=== PATIENT | female | born 1990 ===

== ENCOUNTER 2020-10-09 08:27 | Outpatient (CLI) | payer SELFPAY ==
[2020-10-09 09:19] VITALS: BP 107/58
[2020-10-09] MEDS ORDERED: LACTATED RINGERS 500 ML IV ONE (09:30)
[2020-10-09 10:18] LABS: Bacteria,Urine 4+ /HPF (Negative); Bilirubin,Urine NEG (Negative); Blood,Urine NEG (Negative); Color,Urine Yellow (Yellow); Protein,Urine <15 mg/dL mg/dL (Negative); Urobilinogen,Urine < 2.0 mg/dL (<2.0)
[2020-10-09] MEDS ORDERED: LACTATED RINGERS 1,000 ML IV ONE (10:24)
== END 2020-10-09 12:35 | disposition home or self-care (01) ==
LOC: EDBD → TRG 08:27 → APU 08:28 → TRG 12:35
PROVIDERS: ATTEND Obstetrics & Gynecology
DX: O26.893 Other specified pregnancy related conditions, third trimester (principal); R52 Pain, unspecified; O13.3 Gestational [pregnancy-induced] hypertension without significant proteinuria, third trimester; O62.9 Abnormality of forces of labor, unspecified; Z3A.31 31 weeks gestation of pregnancy
CPT/HCPCS: 59025; 81001; 96365; J0690; J7120; 96360

== ENCOUNTER 2020-12-01 07:15 | Inpatient (IN) | payer OTHER ==
[2020-12-01] MEDS ORDERED: ACETAMINOPHEN 325 MG TAB PO PRN (08:25)
[2020-12-01] MEDS ORDERED: ONDANSETRON 4 MG/2 ML INJ IV PRN ×2 (08:30→14:47)
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
[2020-12-01] MEDS ORDERED: LIDOCAINE (2%) 20 MG/1 ML VIAL 20 ML MDV INFILTRATI SCH (09:00)
[2020-12-01] MEDS ORDERED: OXYTOCIN DRIP 30 UNITS/500 ML BAG IV SCH ×3 (09:00→15:00)
[2020-12-01] MEDS ORDERED: TERBUTALINE 1 MG/1 ML INJ SUB-Q PRN (09:00)
[2020-12-01] MEDS ORDERED: NALOXONE 0.4 MG/1 ML INJ IV PRN (09:30)
[2020-12-01] MEDS ORDERED: METHYLERGONOVINE MALEATE 0.2 MG/ML VIAL IM PRN (09:30)
[2020-12-01] MEDS ORDERED: CARBOPROST TROMETHAMINE 250 MCG/1 ML INJ IM PRN (09:30)
[2020-12-01] MEDS ORDERED: LOPERAMIDE 2 MG CAP PO PRN (09:30)
[2020-12-01] MEDS ORDERED: OXYTOCIN 10 UNIT/1 ML INJ IM PRN (09:30)
[2020-12-01] MEDS ORDERED: fentaNYL 100 MCG/2 ML INJ IV PRN (09:30)
[2020-12-01] MEDS ORDERED: miSOPROStol 200 MCG TAB PR PRN ×2 (09:30→14:47)
[2020-12-01] MEDS ORDERED: ePHEDrine SULFATE 50 MG/1 ML INJ IV PRN (09:30)
[2020-12-01] MEDS ORDERED: PROMETHAZINE 25 MG TAB PO PRN ×2 (09:30→14:47)
[2020-12-01] MEDS ORDERED: BUTORPHANOL 2 MG/1 ML INJ IV PRN (09:30)
--- NOTE | 2020-12-01 09:36 | Ultrasound Report ---
LIMITED OBSTETRICAL ULTRASOUND WITH BIOPHYSICAL PROFILE HISTORY: Evaluate growth, well being and PER. FINDINGS: A single viable intrauterine in the cephalic position has heart tones of 13 4 bpm. Amniotic fluid index is 3.8 cm. Estimated age by ultrasound is 35 weeks 3 days. Clinical age is 38 weeks 4 days. Estimated feta l weight is 2605 g (87th percentile). Cephalic index is elevated at 90.9. No fibroid is identified. Biophysical profile is 6/8. The patient received 0 points for amniotic fluid volume. IMPRESSION: 1. Oligohydramnios. Biophysical profile is 6/8 on this basis. 2. weight 87th percentile. 3. Elevated cephalic index. Signer Name: Sal Harden MD Signed: 12/01/2020 9:32 AM Workstation Name: [id number]
[2020-12-01] MEDS ORDERED: MINERAL OIL 30 ML ORAL LIQD PO PRN (10:00)
[2020-12-01] MEDS ORDERED: ACETAMINOPHEN 500 MG TAB PO PRN ×2 (10:00→14:47)
[2020-12-01 10:29] LABS: Hematocrit 33.1 % (30.3-42.9); Hemoglobin 10.9 gm/dl (10.1-14.3); Mean Corpuscular HGB Conc 33 % (30-34); Mean Corpuscular Volume 78 fl (79-97); Platelet Count 329 K/mm3 (140-440); Red Blood Count 4.22 M/mm3 (3.65-5.03); Red Cell Distribution Width 15.2 % (13.2-15.2)
[2020-12-01 10:38] LABS: Bacteria,Urine 1+ /HPF (Negative); Bilirubin,Urine NEG (Negative); Blood,Urine LG (Negative); Color,Urine Yellow (Yellow); Hyaline Casts,Urine 1 /LPF; Mucus,Urine FEW /HPF; Protein,Urine <15 mg/dL mg/dL (Negative); Urobilinogen,Urine < 2.0 mg/dL (<2.0)
[2020-12-01 10:40] LABS: Amphetamine Screen,Urine Negative; Benzodiazepines Screen,Urine Negative; Cannabinoid Screen,Urine Negative; Cocaine Screen,Urine Negative; Methadone Screen,Urine Negative; Opiate Screen,Urine Negative
[2020-12-01 10:42] LABS: RBC,Urine > 182.0 /HPF (0.0-6.0)
[2020-12-01] MEDS: LACTATED RINGERS 1,000 ML IV SCH ×2 (10:45→13:28)
[2020-12-01] MEDS ORDERED: AMPICILLIN/NS 2 GM/100 ML 2 GM/100 ML BAG IV SCH (11:00)
[2020-12-01 11:27] LABS: Hepatitis C Virus Antibody Non-Reactive (NonReactive)
--- NOTE | 2020-12-01 12:41 | Anesthesia Consultation ---
Anesthesia Consult and Med Hx Date of service: 12/01/20 - Airway Anesthetic Teeth Evaluation: Poor ROM Head & Neck: Adequate Mental/Hyoid Distance: Adequate Mallampati Class: Class II Intubation Access Assessment: Probably Good - Pulmonary Exam CTA: Yes - Cardiac Exam Cardiac Exam: RRR - Pre-Operative Health Status ASA Pre-Surgery Classification: ASA2 Proposed Anesthetic Plan: Epidural - Pulmonary Hx Smoking: Yes (quit 2019) Hx Asthma: No Hx Respiratory Symptoms: No SOB: No COPD: No Home Oxygen Therapy: No Hx Pneumonia: No Hx Sleep Apnea: No - Cardiovascular System Hx Hypertension: No Hx Coronary Artery Disease: No Hx Heart Attack/AMI: No Hx Angina: No Hx Percutaneous Transluminal Coronary Angioplasty (PTCA): No Hx Cardia Arrhythmia: No Hx Pacemaker: No Hx Internal Defibrillator: No Hx Valvular Heart Disease: No Hx Heart Murmur: No Hx Peripheral Vascular Disease: No - Central Nervous System Hx Neuromuscular Disorder: No Hx Seizures: No CVA: No Hx Back Pain: No Hx Psychiatric Problems: No - Gastrointestinal Hx Ulcer: No Hx Gastroesophageal Reflux Disease: Yes - Endocrine Hx Renal Disease: No Hx End Stage Renal Disease: No Hx Cirrhosis: No Hx Liver Disease: No Hx Insulin Dependent Diabetes: No Hx Non-Insulin Dependent Diabetes: No Hx Thyroid Disease: No Hx Hypothyroidism: No Hx Hyperthyroidism: No - Hematic Hx Anemia: No Hx Sickle Cell Disease: No - Other Systems Hx Alcohol Use: No Hx Substance Use: No Hx Cancer: No Hx Obesity: No
--- NOTE | 2020-12-01 12:59 | Progress Note ---
Assessment and Plan A: 30 y.o. @ 38.3 wks, SROM @ 0500 clear fluid, limited PNC in the states. Cervical exam 3.5/70/-3. P: IV fluid bolus for epidural placement. Anticipate . LINA team at delivery. Subjective - Subjective Date of service: 12/01/20 (Pt feeling contractions. ) Principal diagnosis: IUP @ 38.3 wks per LMP, limited PNC in the states Patient reports: movement normal, contractions Objective - Vital Signs Vital Signs: Vital Signs - 12hr 12/01/20 12/01/20 12/01/20 08:03 08:05 08:08 Temperature 98.3 F Pulse Rate 69 62 66 Respiratory 20 Rate Blood Pressure 148/83 O2 Sat by Pulse 98 99 Oximetry 12/01/20 12/01/20 12/01/20 08:13 08:18 08:20 Temperature Pulse Rate 68 60 68 Respiratory Rate Blood Pressure 125/77 O2 Sat by Pulse 99 99 Oximetry 12/01/20 12/01/20 12/01/20 08:23 08:28 08:33 Temperature Pulse Rate 59 L 64 61 Respiratory Rate Blood Pressure O2 Sat by Pulse 99 98 98 Oximetry 12/01/20 12/01/20 12/01/20 08:38 08:43 08:48 Temperature Pulse Rate 73 65 70 Respiratory Rate Blood Pressure O2 Sat by Pulse 98 98 99 Oximetry 12/01/20 12/01/20 12/01/20 08:53 08:58 09:03 Temperature Pulse Rate 69 68 65 Respiratory Rate Blood Pressure O2 Sat by Pulse 99 96 97 Oximetry 12/01/20 12/01/20 12/01/20 09:08 09:13 09:18 Temperature Pulse Rate 69 71 71 Respiratory Rate Blood Pressure O2 Sat by Pulse 99 99 99 Oximetry 12/01/20 12/01/20 12/01/20 09:23 09:28 09:33 Temperature Pulse Rate 63 62 66 Respiratory Rate Blood Pressure O2 Sat by Pulse 99 99 99 Oximetry 12/01/20 12/01/20 12/01/20 09:38 09:43 09:48 Temperature Pulse Rate 71 73 67 Respiratory Rate Blood Pressure O2 Sat by Pulse 98 98 98 Oximetry 12/01/20 12/01/20 12/01/20 09:53 10:37 10:42 Temperature Pulse Rate 75 63 69 Respiratory Rate Blood Pressure O2 Sat by Pulse 98 97 98 Oximetry 12/01/20 12/01/20 12/01/20 10:47 10:52 10:57 Temperature Pulse Rate 68 70 61 Respiratory Rate Blood Pressure O2 Sat by Pulse 98 99 99 Oximetry 12/01/20 12/01/20 12/01/20 11:02 11:07 11:12 Temperature Pulse Rate 65 67 58 L Respiratory Rate Blood Pressure O2 Sat by Pulse 98 98 98 Oximetry 12/01/20 12/01/20 12/01/20 11:17 11:22 11:27 Temperature Pulse Rate 65 64 74 Respiratory Rate Blood Pressure O2 Sat by Pulse 98 98 99 Oximetry 12/01/20 12/01/20 12/01/20 11:32 11:37 11:42 Temperature Pulse Rate 62 63 59 L Respiratory Rate Blood Pressure O2 Sat by Pulse 98 98 98 Oximetry 12/01/20 12/01/20 12/01/20 11:47 11:52 11:57 Temperature Pulse Rate 63 67 57 L Respiratory Rate Blood Pressure O2 Sat by Pulse 98 99 98 Oximetry 12/01/20 12/01/20 12/01/20 12:02 12:07 12:12 Temperature Pulse Rate 74 56 L 67 Respiratory Rate Blood Pressure O2 Sat by Pulse 98 98 98 Oximetry 12/01/20 12/01/20 12/01/20 12:14 12:17 12:22 Temperature Pulse Rate 62 79 62 Respiratory Rate Blood Pressure 117/65 O2 Sat by Pulse 97 99 Oximetry 12/01/20 12/01/20 12/01/20 12:27 12:32 12:37 Temperature Pulse Rate 61 60 66 Respiratory Rate Blood Pressure O2 Sat by Pulse 99 99 99 Oximetry 12/01/20 12/01/20 12/01/20 12:42 12:47 12:52 Temperature Pulse Rate 65 54 L 63 Respiratory Rate Blood Pressure O2 Sat by Pulse 100 99 100 Oximetry 12/01/20 12:57 Temperature Pulse Rate 59 L Respiratory Rate Blood Pressure O2 Sat by Pulse 99 Oximetry - Exam FHR: category 1 Cervical Dilatation: 3.5 Cervical Effacement Percentage: 70 station: -3 Uterine Contraction Pattern: Regular Uterine Tone Measurement Phase: Resting Uterine Contraction Intensity: Mild - Labs Labs: Abnormal Labs 12/01/20 12/01/20 10:00 10:00 MCV 78 L MCH 26 L Urine WBC (Auto) 11.0 H Laboratory Results - last 24 hr 12/01/20 12/01/20 12/01/20 10:00 10:00 10:00 WBC 9.3 RBC 4.22 Hgb 10.9 Hct 33.1 MCV 78 L MCH 26 L MCHC 33 RDW 15.2 Plt Count 329 Urine Color Urine Turbidity Urine pH Ur Specific [place] Urine Protein Urine Glucose (UA) Urine Ketones Urine Blood Urine Nitrite Urine Bilirubin Urine Urobilinogen Ur Leukocyte Esterase Urine WBC (Auto) Urine RBC (Auto) U Epithel Cells (Auto) Urine Bacteria (Auto) Hyaline Casts Urine Mucus Urine Opiates Screen Urine Methadone Screen Ur Barbiturates Screen Ur Phencyclidine Scrn Ur Amphetamines Screen U Benzodiazepines Scrn Urine Cocaine Screen U Marijuana (THC) Screen Drugs of Abuse Note Syphilis IgG Antibody Nonreactive Hep Bs Antigen Hepatitis C Antibody Non-reactive HIV 1&2 Antibody Rapid HIV P24 Antigen Rubella IgG Antibody Immune Blood Type A POSITIVE 12/01/20 12/01/20 12/01/20 10:00 10:00 10:00 WBC RBC Hgb Hct MCV MCH MCHC RDW Plt Count Urine Color Yellow Urine Turbidity Clear Urine pH 7.0 Ur Specific [place] 1.006 Urine Protein <15 mg/dl Urine Glucose (UA) Neg Urine Ketones Neg Urine Blood Lg Urine Nitrite Neg Urine Bilirubin Neg Urine Urobilinogen < 2.0 Ur Leukocyte Esterase Tr Urine WBC (Auto) 11.0 H Urine RBC (Auto) > 182.0 U Epithel Cells (Auto) 7.0 Urine Bacteria (Auto) 1+ Hyaline Casts 1 Urine Mucus Few Urine Opiates Screen Negative Urine Methadone Screen Negative Ur Barbiturates Screen Negative Ur Phencyclidine Scrn Negative Ur Amphetamines Screen Negative U Benzodiazepines Scrn Negative Urine Cocaine Screen Negative U Marijuana (THC) Screen Negative Drugs of Abuse Note Disclamer Syphilis IgG Antibody Hep Bs Antigen Nonreactive Hepatitis C Antibody HIV 1&2 Antibody Rapid HIV P24 Antigen Rubella IgG Antibody Blood Type 12/01/20 10:00 WBC RBC Hgb Hct MCV MCH MCHC RDW Plt Count Urine Color Urine Turbidity Urine pH Ur Specific [place] Urine Protein Urine Glucose (UA) Urine Ketones Urine Blood Urine Nitrite Urine Bilirubin Urine Urobilinogen Ur Leukocyte Esterase Urine WBC (Auto) Urine RBC (Auto) U Epithel Cells (Auto) Urine Bacteria (Auto) Hyaline Casts Urine Mucus Urine Opiates Screen Urine Methadone Screen Ur Barbiturates Screen Ur Phencyclidine Scrn Ur Amphetamines Screen U Benzodiazepines Scrn Urine Cocaine Screen U Marijuana (THC) Screen Drugs of Abuse Note Syphilis IgG Antibody Hep Bs Antigen Hepatitis C Antibody HIV 1&2 Antibody Rapid Non react HIV P24 Antigen Non react Rubella IgG Antibody Blood Type
--- NOTE | 2020-12-01 13:44 | Progress Note ---
Labor Epidural - Labor Epidural Start Time: 12:47 Stop Time: 13:05 Performed by:: LORENZO SHETTY Procedure: Patient is requesting a laboring epidural for laboring pain. Patient IDed, H&P reviewed, all questions and concerns were answered, and consent was signed. Timeout was performed at bedside. Patient in sitting position. Sterile prep and drape was performed. [3] ml of 1% lidocaine skin wheal at L[3]- L [4]. 18- gauge Tanisha epidural needle was advanced to loss of resistance with saline technique 7cm. Negative CSF negative blood. Epidural catheter advanced to [12] centimeters. [NEGATIVE] Aspiration [NEGATIVE] test dose. Sterile dressing applied. Patient tolerated procedure.
--- NOTE | 2020-12-01 14:00 | Event Note ---
Date: 12/01/20 (Pt feeling a lot of pressure and pain. ) Was called to room because patient was c/o pain and pressure. My cervical exam . Pt will be getting an epidural placed. She is sitting up for epidural placement. Anticipate .
--- NOTE | 2020-12-01 14:44 | Procedure Note ---
OB Delivery Note - Delivery Date of Delivery: 12/01/20 New Car Salesperson: AUDREY LEOS Estimated blood loss: <100cc (50 ml) - Vaginal Delivery presentation: vertex Delivery position: OA Intrapartum events: no care (No care in the [place]. ), other(please specify) Delivery induction: none Delivery augmentation: pitocin Delivery monitor: external FHT, external uterine Route of delivery: Delivery placenta: spontaneous Delivery cord: 3 umbilical vessels Episiotomy: none Delivery laceration: none Anesthesia: epidural (By LMP 38.3 wks, by u/s 35+, FH was 35 in triage) Delivery comments: of viable female . to mothers abdomen for skin to skin. Cord clamped after cessation of pulse. Cut by FOC. handed to LINA team for evaluation. Spontaneous delivery of placenta, intact, complete, 3 vessels noted. Placenta appears smaller than 38.4 weeks. Umbilical cord very thin. Will send p blancheaidan to pathology. Perineum and vagina inspected, no lacerations noted. Fundus firm with a small amount of bleeding noted. Infant weight 4-15. EBL 50ml. Apgars 8,9. - A at 1 minute: 8 at 5 minutes: 9 Gender: Female (Weight 4-15)
[2020-12-01] MEDS ORDERED: MAGNESIUM HYDROXIDE (MOM) ORAL LIQD UDC PO PRN (14:47)
[2020-12-01] MEDS ORDERED: WITCH HAZEL/ GLYCERIN PAD TP PRN (14:47)
[2020-12-01] MEDS ORDERED: diphenhydrAMINE 25 MG CAP PO PRN (14:47)
[2020-12-01] MEDS ORDERED: BENZOCAINE/MENTHOL 20/0.5% TOP SPRAY 56 GM TP PRN (14:47)
[2020-12-01] MEDS ORDERED: PROMETHAZINE 25 MG RECT SUPP PR PRN (14:47)
[2020-12-01] MEDS ORDERED: LANOLIN/ZINC/DIMETHICONE (LANSINOH) 7 GM TP PRN ×2 (14:47)
[2020-12-01] MEDS ORDERED: oxyCODONE /ACETAMINOPHEN 5-325MG TAB PO PRN (14:47)
[2020-12-01] MEDS ORDERED: AMPICILLIN/NS 1 GM/50 ML 1 GM/50 ML BAG IV SCH (15:00)
[2020-12-01] MEDS: IBUPROFEN 800 MG TAB PO SCH ×2 (18:27→23:49)
[2020-12-01] MEDS: DOCUSATE SODIUM 100 MG CAP PO SCH (23:49)
[2020-12-02 03:59] LABS: Hematocrit 29.6 % (30.3-42.9); Hemoglobin 9.8 gm/dl (10.1-14.3)
[2020-12-02] MEDS: IBUPROFEN 800 MG TAB PO SCH ×4 (05:53→23:32)
[2020-12-02] MEDS ORDERED: TETANUS,DIPH,PERTUSS(ACELL) VACCINE 0.5 ML SYRINGE IM ONE (06:00)
--- NOTE | 2020-12-02 08:10 | Discharge Summary ---
Providers - Providers Date of Admission: 12/01/20 12:12 Date of discharge: 12/02/20 (pt desires d/c) Attending physician: CANDI VELEZ 12/01/20 17:44 Consult to Case Management [CONS] Routine Services Needed at Discharge: Other Notified:: No Additional Physician Instructions: Limited PNC Primary care physician: HEAD OPERATOR [facility] Hospitalization Reason for admission: active labor, IUP at term Delivery: Episiotomy: none Laceration: none Incision: normal Other procedures: none complications: none Discharge diagnosis: IUP at term delivered baby: female Hospital course: uncomplicated vaginal delivery; walk-in Pt w/o complaint this AM SO translated for the visit. VSS FF below umb Lochia small Perineum intact. H&H 01/07 no s/sx of anemia Doing well s/p vag delivery P: d/c today with instructions Pt desires to RT [facility] for her PP care Condition at discharge: Good Disposition: 01 HOME / SELF CARE / HOMELESS - Discharge Diagnoses (1) Spontaneous vaginal delivery Status: Acute Comment: RTO 4 weeks PP Care Plan - Provider Discharge Summary Activity: routine, no sex for 6 weeks, no heavy lifting 4 weeks, no strenuous exercise Diet: routine Instructions: routine Additional instructions: [] Smoking cessation referral if applicable(refer to patient education folder for contact #) [] Refer to [facility] Booklet Call your doctor immediately for: * Fever > 100.5 * Heavy vaginal bleeding ( >1 pad per hour) * Severe persistent headache * Shortness of breath * Reddened, hot, painful area to leg or breast * Drainage or odor from incision. * Keep incision clean and dry at all times and follow doctor's instructions regarding bathing/showering - Follow up plan Follow up: PRIMARY CARE, [Primary Care Provider] - 7 Days AKHIL BOB CNM [Advanced Practice Nurse] - 01/01/21 (Congratulations! Please call [phone] to schedule your visit in 4 weeks. Take Motrin/ibuprofen for cramping/pain. Call with any concerns. [facility] [address] [id number])
--- NOTE | 2020-12-02 08:57 | Post Anesthesia Evaluation ---
- Post Anesthesia Evaluation Patient Participated: Yes Airway Patent: Yes Stable Respiratory Function: Yes Nausea/Vomiting: No Temp > 96.8F: Yes Pain Manageable: Yes Adequeate Hydration: Yes Anesthesia Complications: No Block Receding Appropriately: Yes Patient on Ventilator: No
[2020-12-02] MEDS: PRENATAL VIT27-FE FUMARATE-FOLIC ACID VIT TAB PO SCH (09:58)
[2020-12-02] MEDS: DOCUSATE SODIUM 100 MG CAP PO SCH ×2 (09:58→21:13)
[2020-12-03] MEDS: IBUPROFEN 800 MG TAB PO SCH ×2 (06:44→11:56)
[2020-12-03 09:14] VITALS: BP 122/63
[2020-12-03] MEDS: DOCUSATE SODIUM 100 MG CAP PO SCH (11:57)
[2020-12-03] MEDS: PRENATAL VIT27-FE FUMARATE-FOLIC ACID VIT TAB PO SCH (11:57)
== END 2020-12-03 16:30 | disposition home or self-care (01) | DRG 807 ==
LOC: TRG 07:15 → APU 07:17 → TRG 08:25 → LD 10:39 → OB 17:14
PROVIDERS: ADMIT Obstetrics & Gynecology; ATTEND Obstetrics & Gynecology
PROC: 10E0XZZ Delivery of Products of Conception, External Approach (ICD-10-PCS; principal; 2020-12-01)
PROC: 3E0R3BZ Introduction of Anesthetic Agent into Spinal Canal, Percutaneous Approach (ICD-10-PCS; 2020-12-01)
PROC: 00HU33Z Insertion of Infusion Device into Spinal Canal, Percutaneous Approach (ICD-10-PCS; 2020-12-01)
PROC: 3E0234Z Introduction of Serum, Toxoid and Vaccine into Muscle, Percutaneous Approach (ICD-10-PCS; 2020-12-02)
DX: O36.5930 Maternal care for other known or suspected poor fetal growth, third trimester, not applicable or unspecified (principal); Z37.0 Single live birth; O99.62 Diseases of the digestive system complicating childbirth; Z3A.38 38 weeks gestation of pregnancy; Z87.891 Personal history of nicotine dependence; K21.9 Gastro-esophageal reflux disease without esophagitis; Z20.822 Contact with and (suspected) exposure to COVID-19; Z23 Encounter for immunization
CPT/HCPCS: 36415; 76816; 76819; 80307; 81001; 85014; 85018; 85027; 86592; 86706; 86762; 86803; 86850; 86900; 86901; 87086; 87806; 88307; G0378; J0290; J2590; J7120; U0003